=== PATIENT | female | born 1990 | race Caucasian/White ===

== ENCOUNTER 2017-01-13 08:14 | Emergency (ER) | payer BC ==
[2017-01-13 08:30] VITALS: BP 132/74
--- NOTE | 2017-01-13 09:10 | UC ---
Shortness of Breath HPI - HPI Summary HPI Summary: 26 yo female about 19 weeks presents with one week hx of mild chest pressure/elevated pulse (up to 120 at rest) and mild dyspnea she feels like she needs to make herself take deep breaths no f/ no URI symptoms no problems this her baseline pulse is 60-70 - History of Current Complaint Chief Complaint: UCChestPain Stated Complaint: DIFFICULTY BREATHING/CHEST PAIN Time Seen by Provider: 01/13/17 08:26 Hx Obtained From: Patient Hx Last Menstrual Period: week of 03/21/16 Onset/Duration: Gradual Onset Timing: Constant Current Severity: Mild Dyspnea At: Rest Aggrevating Factors: Nothing Alleviating Factors: Nothing Associated Signs & Symptoms: Positive: Chest Pain Unrelated to Cough - prssure. Negative: Cough (Productive), Cough (Nonproductive), Cough (Bloody Sputum), Wheezing, Chest Pain w/Cough, Fever, Chills, Diaphoresis, Nasal Congestion, Dizzy, Calf Pain/Swelling, Edema - Risk Factors Pulmonary Embolism: - Allergy/Home Medications Allergies/Adverse Reactions: Allergies Allergy/AdvReac Type Severity Reaction Status Date / Time seasonal Allergy Congestion Uncoded 01/13/17 08:30 Home Medications: Home Medications Vit W/ Ferrous Fumara [ Complete 14-0.4 mg] 1 tab PO DAILY [History Confirmed 01/13/17] PMH/Surg Hx/FS Hx/Imm Hx Previously Healthy: Yes - Surgical History Surgical History: Yes Surgery Procedure, Year, and Place: At age 2 weeks of age pyloric stenosis - Family History Known Family History: Positive: Other - no fhx DVT/PE Negative: Cardiac Disease, Hypertension, Diabetes Family History: grandparent with colon cancer - Social History Alcohol Use: None Substance Use Type: None Smoking Status (MU): Never Smoked Tobacco - Immunization History Most Recent Tetanus Shot: WITHIN PAST 5 YRS. Review of Systems Constitutional: Negative Skin: Negative Eyes: Negative ENT: Negative Respiratory: Shortness Of Breath Cardiovascular: Chest Pain Gastrointestinal: Negative Genitourinary: Negative Motor: Negative Neurovascular: Negative Musculoskeletal: Negative Neurological: Negative Psychological: Negative All Other Systems Reviewed And Are Negative: Yes Physical Exam Triage Information Reviewed: Yes Appearance: Well-Appearing, No Pain Distress, Well-Nourished Vital Signs: Initial Vital Signs Temp 99.2 F 01/13/17 08:17 Pulse 93 01/13/17 08:17 Resp 16 01/13/17 08:17 BP 132/74 01/13/17 08:17 Pulse Ox 100 01/13/17 08:17 Vital Signs Reviewed: Yes Eyes: Positive: Conjunctiva Clear ENT: Positive: Hearing grossly normal. Negative: Nasal congestion, Nasal drainage, Trismus, Muffled/hoarse voice Dental: Negative: Dental Fracture @, Abscess @ Neck: Positive: Supple, Nontender, No Lymphadenopathy Respiratory: Positive: Lungs clear, Normal breath sounds, No respiratory distress, No accessory muscle use Cardiovascular: Positive: RRR, No Murmur Abdomen Description: Positive: Nontender - gravid uterus Musculoskeletal: Positive: ROM Intact Neurological: Positive: Alert Psychological Exam: Normal Skin Exam: Normal Diagnostics - EKG Cardiac Rate: NL Cardiac Rhythm: Sinus: Normal Ectopy: None ST Segment: Normal Shortness of Breath Dx - Course Course Of Treatment: I suggest that she go to the ER. She declines. States she will go if things worse. Aware of concern for PE. I advised her that being pregant puts her at increased risk. - Differential Dx/Diagnosis Provider Diagnoses: chest pressure and dyspnea of uncertain cause Discharge - Discharge Plan Condition: Guarded Disposition: AGAINST MEDICAL ADVICE Additional Instructions: As discussed I am unsure of the cause of your symptoms Being puts you at increased risk for pulmonary embolism (blood clot to lungs) This is potentially life threatening The most prudent thing to do would be to go to the ER and have this ruled out If you change your mind please go there directly
== END 2017-01-13 09:30 | disposition left against medical advice (07) ==
LOC: UCCORT 08:14
DX: O26.892 Other specified pregnancy related conditions, second trimester (principal); R07.89 Other chest pain; R06.00 Dyspnea, unspecified; Z3A.19 19 weeks gestation of pregnancy
CPT/HCPCS: 93005; 99212; G0463

== ENCOUNTER 2017-03-19 10:00 | Emergency (ER) | payer BC ==
[2017-03-19 10:28] VITALS: BP 124/84
--- NOTE | 2017-03-19 10:34 | UC ---
FLU HPI - HPI Summary HPI Summary: Pt presents with c/o cough, fever, chest congestion X 1 day. Pt reports that she had a fever today at 100 F. Pt is 28 weeks spoke with OB, Dr. Casillas about symptoms and was told to take tylenol "cold and flu" OTC medication to manage symptoms. - History of Current Complaint Chief Complaint: UCRespiratory Stated Complaint: COUGH Time Seen by Provider: 03/19/17 10:25 Hx Obtained From: Patient Hx Last Menstrual Period: 09/02/16 ?: Yes Onset/Duration: Sudden Onset, Lasting Days - 1 Severity Currently: Mild Severity Initially: Mild Associated Signs & Symptoms: Positive: Fever, T Max - 100F, Cough, Sore Throat, Nasal Congestion - Risk Factors Influenza Risk Factors: Negative - Allergy/Home Medications Allergies/Adverse Reactions: Allergies Allergy/AdvReac Type Severity Reaction Status Date / Time No Known Allergies Allergy Verified 03/19/17 10:21 Home Medications: Home Medications Tavybicongktk-[id number]-[id number] [Tylenol Sinus Congestion 5-325-200 mg] 1 tab PO Q4H PRN 03/19/17 [History Confirmed 03/19/17] Vitamin TAB* 1 tab PO DAILY 03/19/17 [History Confirmed 03/19/17] PMH/Surg Hx/FS Hx/Imm Hx Previously Healthy: Yes - Surgical History Surgical History: Yes Surgery Procedure, Year, and Place: Pyloric Stenosis, 1990, - Family History Known Family History: Positive: Other - no fhx DVT/PE Negative: Cardiac Disease, Hypertension, Diabetes Family History: grandparent with colon cancer - Social History Occupation: Employed Full-time Lives: With Family Alcohol Use: None Substance Use Type: None Smoking Status (MU): Never Smoked Tobacco Have You Smoked in the Last Year: No - Immunization History Most Recent Tetanus Shot: WITHIN PAST 5 YRS. Review of Systems Constitutional: Fever, Fatigue Skin: Negative Eyes: Negative ENT: Sore Throat Respiratory: Cough, Other - chest congestion Cardiovascular: Negative Gastrointestinal: Negative Genitourinary: Negative Motor: Negative Neurovascular: Negative Musculoskeletal: Negative Neurological: Negative Psychological: Negative All Other Systems Reviewed And Are Negative: Yes Physical Exam Triage Information Reviewed: Yes Appearance: Well-Appearing Vital Signs: Initial Vital Signs Temp 98.8 F 03/19/17 10:17 Pulse 130 03/19/17 10:17 Resp 18 03/19/17 10:17 BP 124/84 03/19/17 10:17 Pulse Ox 98 03/19/17 10:17 Vital Signs Reviewed: Yes Eye Exam: Normal ENT Exam: Other ENT: Positive: Nasal congestion, Other: - chest congestion Dental Exam: Normal Neck exam: Normal Respiratory Exam: Normal Cardiovascular Exam: Normal Abdominal Exam: Normal, Other - pt is , positive heart tones Musculoskeletal Exam: Normal Neurological Exam: Normal Psychological Exam: Normal Skin Exam: Normal Flu Course/Dx - Course Course Of Treatment: I discussed with the patient the results of her positive Influenza test. I discussed with the pt the need to inform her OB regarding the positive flu test. - Differential Dx/Diagnosis Differential Diagnosis/HQI/PQRI: Influenza Provider Diagnoses: Influenza A Discharge - Discharge Plan Condition: Stable Disposition: HOME Patient Education Materials: Influenza (ED) Forms: *Work Release Referrals: Matthew Casillas MD [Medical Doctor] - Kasey Vega MD [Primary Care Provider] - If Needed
== END 2017-03-19 11:04 | disposition home or self-care (01) ==
LOC: UCCORT 10:00
DX: O26.899 Other specified pregnancy related conditions, unspecified trimester (principal); J09.X2 Influenza due to identified novel influenza A virus with other respiratory manifestations; Z3A.00 Weeks of gestation of pregnancy not specified
CPT/HCPCS: 87502; 99212; G0463

== ENCOUNTER 2017-07-27 20:27 | Emergency (ER) | payer BC ==
--- NOTE | 2017-07-27 20:50 | UC ---
Breast Complaint - HPI Summary HPI Summary: In preparation for return to work, stopped expressing breast milk 24 hours ago and started oral contraceptive. Advised by OBGYN to wear a sports bra. Today has increasing engorgement and erythema, no fever. Right breast most affected, but left is also developing redness. - History of Current Complaint Hx Obtained From: Patient Breast Chief Complaint: Left, Right, Inflammation, Color Changes Onset/Duration: Started Days Ago - 1 Timing: Constant Breast Pain Aggravating Factors: Pressure Breast Pain Alleviating Factors: Heat, Other: - ibuprofen Breast Associated Signs/Symptoms: Nodule/Mass - aware of nodule lower right breast, Redness - Allergy/Home Medications Allergies/Adverse Reactions: Allergies Allergy/AdvReac Type Severity Reaction Status Date / Time No Known Allergies Allergy Verified 07/27/17 20:43 Home Medications: Home Medications Norgestimate-Eth Estradiol(NF) [Ortho Tri-Cyclen (NF)] 1 tab PO DAILY 07/27/17 [ History Confirmed 07/27/17] PMH/Surg Hx/FS Hx/Imm Hx Previously Healthy: Yes - Surgical History Surgical History: Yes Surgery Procedure, Year, and Place: Pyloric Stenosis, 1990, [place] - Family History Known Family History: Positive: Other - no fhx DVT/PE Negative: Cardiac Disease, Hypertension, Diabetes Family History: grandparent with colon cancer - Social History Alcohol Use: None Substance Use Type: None Smoking Status (MU): Never Smoked Tobacco Have You Smoked in the Last Year: No - Immunization History Most Recent Tetanus Shot: WITHIN PAST 5 YRS. Review of Systems Constitutional: Fatigue Skin: Other - breast pain. Neurological: Headache Is Patient Immunocompromised?: No All Other Systems Reviewed And Are Negative: No Physical Exam Triage Information Reviewed: Yes Appearance: Well-Appearing, Pain Distress - mild Vital Signs: Initial Vital Signs Temp 97.8 F 07/27/17 20:30 Pulse 75 07/27/17 20:30 Resp 14 07/27/17 20:30 BP 124/88 07/27/17 20:30 Vital Signs Reviewed: Yes Eyes: Positive: Conjunctiva Clear ENT: Positive: Pharynx normal Respiratory: Positive: Lungs clear, Normal breath sounds Cardiovascular: Positive: RRR, No Murmur Neurological Exam: Normal Psychological Exam: Normal Skin Exam: Other - right breast with induration throughout, patchy erythema over lateral breast, confluent erythema medial breast. Breast Pain Course/Dx - Course Course Of Treatment: cephalexin for treatment of mastitis, advised re management of weaning. - Differential Diagnoses Differential Diagnosis/HQI/PQRI: Breast Abscess, Mastitis - Diagnoses Provider Diagnoses: Mastitis without abscess Is Visit Related: No Discharge - Discharge Plan Condition: Stable Disposition: HOME Prescriptions: Cephalexin CAP* [Keflex 500 CAP*] 500 mg PO QID #28 cap Patient Education Materials: Mastitis (ED) Referrals: Kasey Vega MD [Primary Care Provider] - Additional Instructions: Although 7 days of antibiotic was given, if the redness and pain have subsided you can stop after 5 days. Follow up if you have persistent fever or it appears that a lobe will not drain. Use ibuprofen 600mg three or 4 times daily for control of pain.
[2017-07-27] MEDS ORDERED: Cephalexin CAP* 500 MG PO ONE ×2 (20:56)
[2017-07-27 21:00] VITALS: BP 124/88
== END 2017-07-27 21:16 | disposition home or self-care (01) ==
LOC: UCCORT 20:27
DX: N61.0 Mastitis without abscess (principal); R53.83 Other fatigue; R51 Headache
CPT/HCPCS: 99213; A9270-GY; G0463